=== PATIENT | male | born 1950 ===

== ENCOUNTER 2023-06-24 08:18 | Outpatient (RCR) | payer MEDICARE, SELFPAY | END 2023-06-24 23:59 | disposition home or self-care (01) | LOC: RST 08:18 | PROVIDERS: ATTENDING PHYSICIAN Psychiatry & Neurology Neurology; FAMILY PHYSICIAN Internal Medicine | DX: G20.C Parkinsonism, unspecified (principal); R49.8 Other voice and resonance disorders; R47.1 Dysarthria and anarthria | CPT/HCPCS: 92522 ==

== ENCOUNTER 2023-08-01 08:39 | Outpatient (RCR) | payer MEDICARE, SELFPAY | END 2023-08-01 23:59 | disposition home or self-care (01) | LOC: RST 08:39 | PROVIDERS: ATTENDING PHYSICIAN Psychiatry & Neurology Neurology; FAMILY PHYSICIAN Internal Medicine | DX: G20.C Parkinsonism, unspecified (principal); R49.8 Other voice and resonance disorders; R47.1 Dysarthria and anarthria | CPT/HCPCS: 92507 ==

== ENCOUNTER 2023-08-22 06:19 | Outpatient (RCR) | payer MEDICARE, SELFPAY | END 2023-08-22 11:40 | disposition home or self-care (01) | LOC: RST 06:19 | PROVIDERS: ATTENDING PHYSICIAN Psychiatry & Neurology Neurology; FAMILY PHYSICIAN Internal Medicine | DX: R47.1 Dysarthria and anarthria (principal); G20.C Parkinsonism, unspecified | CPT/HCPCS: 92507 ==